=== PATIENT | male | born 1980 | race Caucasian/White ===

== ENCOUNTER → 2025-04-21 09:48 | Outpatient (REF) | payer BC, SELFPAY | LOC: RCS 09:48 | PROVIDERS: ATTENDING PHYSICIAN Internal Medicine Cardiovascular Disease; FAMILY PHYSICIAN Physician Assistant Medical | DX: R06.02 Shortness of breath (principal) | CPT/HCPCS: 93017 ==

== ENCOUNTER → 2025-05-31 08:33 | Outpatient (REF) | payer BC, SELFPAY | LOC: MRI 08:33 | PROVIDERS: ATTENDING PHYSICIAN Orthopaedic Surgery; FAMILY PHYSICIAN Physician Assistant Medical | DX: M25.562 Pain in left knee (principal) | CPT/HCPCS: 73721 ==